=== PATIENT | female | born 1930 | race Caucasian/White ===

== ENCOUNTER 2016-10-10 22:01 | Inpatient (IN) | payer MEDICARE, OTHER ==
[~2016-10-10] VITALS: Ht 165.1 cm; Wt 74.1 kg
--- NOTE | ~2016-10-10 | CN ---
PATIENT NAME:EKATERINA TAVAREZ MEDICAL RECORD: [id number] : 32 LOCATION:KERI.2306 ADMIT DATE: 10/11/16 ACCOUNT: [id number] CONSULTING PHYSICIAN: VICTORIANO PEREZ MD REFERRING PHYSICIAN: RADU DONALDSON MD DATE OF CONSULTATION: 10/18/2016 Pulmonary Consultation REQUESTING PHYSICIAN: Dr. Anders Carlton. REASON FOR CONSULTATION: Acute mental status changes, acute hypoxic hypercapnic respiratory failure, respiratory acidosis, hyperammonemia. HISTORY OF PRESENT ILLNESS: Ms. Tavarez is an 86-year-old female. Initially, she was brought in with acute mental status changes, acute renal failure and UTI. The patient was on dialysis. Since yesterday, the patient is more weak and lethargic. ABG showed a pH of 7.24, pCO2 of 53 and ammonia level was 45. The patient was transferred to the ICU and start on lactulose and the patient was stable overnight on BiPAP. Now, she is a little bit responsive, but she still not awake and alert. She is very weak and lethargic. She also is dyspneic. There are no fever or chills. No night sweats. REVIEW OF SYSTEMS: The detail is not obtainable. PAST MEDICAL HISTORY: 1. Hypertension. 2. History of syncope. PAST SURGICAL HISTORY: Nonsignificant. ALLERGIES: SHE IS ALLERGIC TO SULFA. PRESENT MEDICATIONS: She is on Rocephin IV. Her other medication is reviewed. PERSONAL AND SOCIAL HISTORY: The patient never smoked. She is a nondrinker. FAMILY HISTORY: Noncontributory. PHYSICAL EXAMINATION: GENERAL: Now, the patient is on BiPAP. She is sleepy and lethargic. VITAL SIGNS: The blood pressure is 162/69, pulse is 56, respirations 14, temperature is 98.4, and SpO2 is 98% on 40% BiPAP. HEENT: Conjunctivae are pink. Sclerae are nonicteric. Pupils are equal, round, reactive to light. NECK: Supple, no JVD. CHEST: The chest excursion is minimal at the bases. There are crackles bilaterally. HEART: Rate and rhythm are regular. There is a grade II/ systolic murmur. ABDOMEN: Soft, bowel sounds present. No hepatosplenomegaly. RECTAL: Deferred. EXTREMITIES: No cyanosis, no clubbing. There is 1+ pedal edema. SKIN: Warm, normal turgor. CENTRAL NERVOUS: The patient is minimally responsive to verbal and painful stimuli. The pupils are equal, sluggish, reactive to light. CONSULT REPORT [id number] EKATERINA TAVAREZ CHEST RADIOGRAPH: There are bilateral pleural effusions. An NG tube is in place. There is pulmonary edema. CT scan of the head, there was nothing acute. LABORATORY DATA: ABG: The pH initially yesterday is 7.24, pCO2 of 53.4, the pO2 was 111, bicarbonate of 23. The repeat ABG: The pH is 7.28, pCO2 of 46.6, the pO2 is 105, bicarbonate 22.4. CBC: The WBC is 11.2, hemoglobin 12.2, hematocrit 37.1 and the platelet count 235. Chemistry: Sodium 140, potassium 3.2, BUN is 35, creatinine is 5, glucose 128. IMPRESSION: 1. Acute hypoxic hypercapnic respiratory failure, which is multifactorial. 2. Respiratory acidosis, secondary to #1. 3. Bilateral pleural effusion and pulmonary edema, most likely secondary to fluid overload secondary to renal failure secondary to valvular heart disease and congestive heart failure. 4. Acute mental status changes, possible metabolic encephalopathy, possible hyperammonemia. 5. Acute renal failure, possible acute kidney injury. 6. Hypertension. 7. Urinary tract infection. RECOMMENDATION: 1. Continue Rocephin. 2. Consult Dr. Sahu. Repeat the CT scan of the head tomorrow. Continue the BiPAP. Hemodialysis per Dr. Hawley. Cardiology is already on the case. Follow up labs and chest radiograph in the morning. Discussed in length with the family, they decided to make the patient DNR. Dr. Anders Carlton, once again, thank you for involving me in the care of Ms. Tavarez. TRANSINT:[id number] Voice Confirmation ID: [id number] DOCUMENT ID: [id number] VICTORIANO PEREZ MD CC: ANDERS CARLTON MD [id number] DICTATION DATE: 10/18/16 1311 PIECE MEAT TRIMMER: 10/18/16 1550 ADM IN [facility] [address] [id number]
--- NOTE | ~2016-10-10 | OP ---
PATIENT NAME: EKATERINA TERRAZAS MEDICAL RECORD: [id number] :32 LOCATION:D.M2 D.2105 ADMISSION DATE:10/11/16 SURGEON: DIANA TAN MD DATE OF OPERATION: 10/15/2016 PREOPERATIVE DIAGNOSES: 1. Acute kidney injury. 2. Hypertension. 3. Urinary tract infection. 4. Bradycardia. POSTOPERATIVE DIAGNOSES: 1. Acute kidney injury. 2. Hypertension. 3. Urinary tract infection. 4. Bradycardia. PROCEDURE: Right IJ 15 cm Trialysis placement. SURGEON: Diana Tan MD REPORT OF PROCEDURE: The patient's right neck was prepped and draped in sterile fashion. Using ultrasound guidance, the right internal jugular was found, 5 cc of 1% lidocaine were infused into the surrounding tissues. A needle was then used to cannulate the right internal jugular vein. The guidewire was advanced with ease. Over this wire, a dilator was placed followed by the Trialysis catheter. This catheter aspirated nonpulsatile dark blood and flushed easily with normal saline. This was sutured into place with 4-0 nylons and dressed appropriately. COMPLICATIONS: None. CONDITION: Stable. ANESTHESIA: Local. BLOOD LOSS: Minimal. Procedure done at the bedside. TRANSINT:[id number] Voice Confirmation ID: [id number] DOCUMENT ID: [id number] DIANA TAN MD CC: [id number] DICTATION DATE: 10/15/16 1026 CLOCKMAKER APPRENTICE: 10/15/16 190 ADM IN [facility] [address] [place] [address]
[2016-10-10 23:19] LABS: APPEARANCE CLEAR (CLEAR); BILIRUBIN NEGATIVE (NEGATIVE); COLOR YELLOW (YELLOW); GLUCOSE NEGATIVE (NEGATIVE); KETONE NEGATIVE (NEGATIVE); LEUKOCYTE ESTERASE NEGATIVE (NEGATIVE); NITRITE NEGATIVE (NEGATIVE); PROTEIN NEGATIVE (NEGATIVE); SPECIFIC GRAVITY 1.015 (1.005-1.020); UROBILINOGEN NORMAL (NORMAL)
[2016-10-10 23:23] LABS: BASOPHILS 0.3 % (0-2); EOSINOPHILS 5.2 % (0-7); HEMATOCRIT 36.1 % (36.0-48.0); HEMOGLOBIN 12.6 g/dL (12-16); IMMATURE GRANULOCYTES 0.6 % (0-5); LYMPHOCYTES 22.3 % (15-50); MCH 31.2 pg (26.0-34.0); MCHC 34.9 g/dL (31.0-37.0); MCV 89.4 fL (80.0-100.0); MEAN PLATELET VOLUME 9.2 fL (7.4-10.4); MONOCYTES 11.1 % (2-11); NEUTROPHILS 60.5 % (40-80); PLATELET COUNT 264 10x3/uL (130-400); RBC 4.04 10x6/uL (4.00-5.40); RDW 13.6 % (11.5-14.5); WBC 6.6 10x3/uL (4.8-10.8)
[2016-10-10 23:44] LABS: ALBUMIN 3.5 g/dL (3.4-5.0); ANION GAP 17.5 mmol/L (8-16); BILIRUBIN - TOTAL 0.32 mg/dL (0.2-1.3); CALCIUM 7.9 mg/dL (8.5-10.1); CARBON DIOXIDE 25.7 mmol/L (21.0-32.0); CREATININE - SERUM 9.7 mg/dL (0.6-1.3); POTASSIUM - SERUM 4.2 mmol/L (3.5-5.1); PROTEIN - SERUM 7.5 g/dL (6.4-8.2)
[2016-10-11 04:00] VITALS: BP 152/64
[2016-10-11 08:15] VITALS: BP 154/66
[2016-10-11 12:08] VITALS: BP 156/76; BP 172/72
[2016-10-11] MEDS ORDERED: ZOCOR40 MG PO (12:16)
[2016-10-11] MEDS ORDERED: METOPROLOL TAR100 M1 PO (12:16)
[2016-10-11] MEDS ORDERED: VALIUM5 MG PO (12:17)
[2016-10-11] MEDS ORDERED: ULTRAM50 MG PO (12:18)
[2016-10-11] MEDS ORDERED: LISINOPRIL-HCTZ1 T13 PO (12:19)
[2016-10-11] MEDS ORDERED: NORVASC5 MG PO (12:19)
[2016-10-11] MEDS ORDERED: LEVOTHYROXINE100 MCG PO (12:19)
[2016-10-11 12:49] LABS: BASOPHILS 0.2 % (0-2); EOSINOPHILS 4.2 % (0-7); HEMATOCRIT 35.2 % (36.0-48.0); HEMOGLOBIN 12.3 g/dL (12-16); IMMATURE GRANULOCYTES 0.4 % (0-5); LYMPHOCYTES 22.7 % (15-50); MCH 31.4 pg (26.0-34.0); MCHC 34.9 g/dL (31.0-37.0); MCV 89.8 fL (80.0-100.0); MEAN PLATELET VOLUME 8.9 fL (7.4-10.4); MONOCYTES 6.6 % (2-11); NEUTROPHILS 65.9 % (40-80); RBC 3.92 10x6/uL (4.00-5.40); RDW 13.6 % (11.5-14.5)
[2016-10-11 12:58] LABS: ANION GAP 16.9 mmol/L (8-16); CALCIUM 7.4 mg/dL (8.5-10.1); CARBON DIOXIDE 23.1 mmol/L (21.0-32.0); CREATININE - SERUM 9.4 mg/dL (0.6-1.3)
[2016-10-11 12:59] LABS: PLATELET COUNT 208 10x3/uL (130-400)
[2016-10-11 13:49] LABS: CKMB 1.4 U/L (0.0-3.6); CREATINE KINASE 43 UL (21-215); TROPONIN-I < 0.017 ng/mL (0.000-0.060)
[2016-10-11 15:07] LABS: CREATININE - URINE 81.7 mg/dL (30-125); POTASSIUM - URINE 29.2 MMOL/L (12.0-62.0); PROTEIN - URINE 35.1 mg/dL (0.0-11.9)
[2016-10-11 15:49] VITALS: BP 167/62
[2016-10-11 19:37] LABS: CKMB 1.9 U/L (0.0-3.6); CREATINE KINASE 58 UL (21-215)
[2016-10-11 19:43] LABS: TROPONIN-I < 0.017 ng/mL (0.000-0.060)
[2016-10-11 20:00] VITALS: BP 183/78
[2016-10-12] VITALS: BP 191/74
[2016-10-12 01:31] LABS: CKMB 1.3 U/L (0.0-3.6); CREATINE KINASE 34 UL (21-215)
[2016-10-12 01:32] LABS: TROPONIN-I < 0.017 ng/mL (0.000-0.060)
[2016-10-12 04:00] VITALS: BP 144/55
[2016-10-12 05:32] LABS: BASOPHILS 0.3 % (0-2); EOSINOPHILS 2.2 % (0-7); HEMATOCRIT 33.9 % (36.0-48.0); HEMOGLOBIN 11.9 g/dL (12-16); IMMATURE GRANULOCYTES 0.8 % (0-5); LYMPHOCYTES 10.9 % (15-50); MCH 31.2 pg (26.0-34.0); MCHC 35.1 g/dL (31.0-37.0); MCV 88.7 fL (80.0-100.0); MEAN PLATELET VOLUME 9.5 fL (7.4-10.4); MONOCYTES 5.5 % (2-11); NEUTROPHILS 80.3 % (40-80); PLATELET COUNT 236 10x3/uL (130-400); RBC 3.82 10x6/uL (4.00-5.40); RDW 13.9 % (11.5-14.5); WBC 7.4 10x3/uL (4.8-10.8)
[2016-10-12 05:49] LABS: ANION GAP 19.9 mmol/L (8-16); CALCIUM 7.4 mg/dL (8.5-10.1); CREATININE - SERUM 9.5 mg/dL (0.6-1.3); POTASSIUM - SERUM 3.9 mmol/L (3.5-5.1)
[2016-10-12 07:55] VITALS: BP 178/80
[2016-10-12 12:00] VITALS: BP 152/75
[2016-10-12 12:07] VITALS: BMI 27.3
[2016-10-12 16:00] VITALS: BP 146/62
[2016-10-12 19:00] VITALS: BP 168/84
[2016-10-13] VITALS: BP 130/60
[2016-10-13 01:59] VITALS: BP 130/60; Ht 165.1 cm; Wt 74.1 kg
[2016-10-13 05:35] LABS: BASOPHILS 0.2 % (0-2); EOSINOPHILS 1.6 % (0-7); HEMATOCRIT 34.7 % (36.0-48.0); IMMATURE GRANULOCYTES 1.1 % (0-5); MCH 31.1 pg (26.0-34.0); MCHC 34.6 g/dL (31.0-37.0); MCV 89.9 fL (80.0-100.0); MEAN PLATELET VOLUME 9.4 fL (7.4-10.4); MONOCYTES 6.1 % (2-11); PLATELET COUNT 241 10x3/uL (130-400); RBC 3.86 10x6/uL (4.00-5.40); RDW 14.2 % (11.5-14.5); WBC 6.4 10x3/uL (4.8-10.8)
[2016-10-13 05:38] VITALS: BP 164/77
[2016-10-13 06:31] LABS: ANION GAP 19.4 mmol/L (8-16); CALCIUM 7.5 mg/dL (8.5-10.1); CARBON DIOXIDE 19.1 mmol/L (21.0-32.0); CREATININE - SERUM 9.4 mg/dL (0.6-1.3); POTASSIUM - SERUM 4.5 mmol/L (3.5-5.1)
[2016-10-13 12:00] VITALS: BP 154/68
[2016-10-13 16:28] VITALS: BP 146/68
[2016-10-13 20:00] VITALS: BP 155/71
[2016-10-14] VITALS: BP 124/62
[2016-10-14 04:00] VITALS: BP 135/55
[2016-10-14 05:51] LABS: BASOPHILS 0.2 % (0-2); EOSINOPHILS 0.7 % (0-7); HEMATOCRIT 35.7 % (36.0-48.0); IMMATURE GRANULOCYTES 1.9 % (0-5); LYMPHOCYTES 11.6 % (15-50); MCH 30.8 pg (26.0-34.0); MCHC 33.6 g/dL (31.0-37.0); MCV 91.8 fL (80.0-100.0); MEAN PLATELET VOLUME 9.5 fL (7.4-10.4); MONOCYTES 6.7 % (2-11); NEUTROPHILS 78.9 % (40-80); PLATELET COUNT 232 10x3/uL (130-400); RBC 3.89 10x6/uL (4.00-5.40); RDW 14.9 % (11.5-14.5); WBC 5.9 10x3/uL (4.8-10.8)
[2016-10-14 06:06] LABS: ANION GAP 21.6 mmol/L (8-16); CALCIUM 7.6 mg/dL (8.5-10.1); CARBON DIOXIDE 17.2 mmol/L (21.0-32.0); CREATININE - SERUM 9.2 mg/dL (0.6-1.3); POTASSIUM - SERUM 4.8 mmol/L (3.5-5.1)
[2016-10-14 06:26] LABS: INR 1.11 (0.85-1.17); PROTIME 14.2 SECONDS (11.6-15.0)
[2016-10-14 07:25] LABS: ERYTHROCYTE SEDIMENTATION RATE 24 mm/hr (0-42)
[2016-10-14 08:10] VITALS: BP 111/49
[2016-10-14 12:17] VITALS: BP 135/59
[2016-10-14 16:30] VITALS: BP 136/52
[2016-10-14 20:00] VITALS: BP 124/56
[2016-10-15] VITALS: BP 146/86
[2016-10-15 04:00] VITALS: BP 122/58
[2016-10-15 05:09] LABS: BASOPHILS 0.1 % (0-2); EOSINOPHILS 0.1 % (0-7); HEMATOCRIT 33.5 % (36.0-48.0); HEMOGLOBIN 11.1 g/dL (12-16); IMMATURE GRANULOCYTES 2.1 % (0-5); LYMPHOCYTES 9.6 % (15-50); MCH 30.7 pg (26.0-34.0); MCHC 33.1 g/dL (31.0-37.0); MCV 92.8 fL (80.0-100.0); MEAN PLATELET VOLUME 9.4 fL (7.4-10.4); MONOCYTES 5.3 % (2-11); NEUTROPHILS 82.8 % (40-80); PLATELET COUNT 218 10x3/uL (130-400); RBC 3.61 10x6/uL (4.00-5.40); WBC 7.2 10x3/uL (4.8-10.8)
[2016-10-15 05:36] LABS: ANION GAP 19.8 mmol/L (8-16); CALCIUM 7.3 mg/dL (8.5-10.1); CARBON DIOXIDE 17.3 mmol/L (21.0-32.0); CREATININE - SERUM 9.1 mg/dL (0.6-1.3); POTASSIUM - SERUM 5.1 mmol/L (3.5-5.1)
[2016-10-15 08:00] VITALS: BP 106/48
[2016-10-15 12:00] VITALS: BP 108/62
[2016-10-15 16:00] VITALS: BP 151/69
[2016-10-15 20:00] VITALS: BP 135/57
[2016-10-16] VITALS: BP 137/83
[2016-10-16 04:00] VITALS: BP 131/64
[2016-10-16 05:50] LABS: BASOPHILS 0.2 % (0-2); EOSINOPHILS 0.2 % (0-7); HEMATOCRIT 35.7 % (36.0-48.0); HEMOGLOBIN 11.9 g/dL (12-16); IMMATURE GRANULOCYTES 0.8 % (0-5); LYMPHOCYTES 7.3 % (15-50); MCH 30.7 pg (26.0-34.0); MCHC 33.3 g/dL (31.0-37.0); MCV 92.2 fL (80.0-100.0); MEAN PLATELET VOLUME 9.6 fL (7.4-10.4); MONOCYTES 5.1 % (2-11); NEUTROPHILS 86.4 % (40-80); PLATELET COUNT 227 10x3/uL (130-400); RBC 3.87 10x6/uL (4.00-5.40); RDW 15.5 % (11.5-14.5)
[2016-10-16 05:51] LABS: WBC 11.2 10x3/uL (4.8-10.8)
[2016-10-16 05:57] LABS: CALCIUM 7.7 mg/dL (8.5-10.1)
[2016-10-16 06:02] LABS: ANION GAP 17.8 mmol/L (8-16); CARBON DIOXIDE 22.1 mmol/L (21.0-32.0); CREATININE - SERUM 5.9 mg/dL (0.6-1.3); POTASSIUM - SERUM 3.9 mmol/L (3.5-5.1)
[2016-10-16 08:07] VITALS: BP 113/47
--- NOTE | 2016-10-16 08:26 | EC ---
PATIENT:EKATERINA TERRAZAS DATE OF SERVICE: 10/11/16 SEX: F MEDICAL RECORD: [id number] DATE OF : 32 LOCATION:D.M2 D.210 AGE OF PATIENT: 86 ADMISSION DATE: 10/11/16 REFERRING PHYSICIAN: INTERPRETING PHYSICIAN: BUTCH BRENNER MD ECHOCARDIOGRAM REPORT ECHO CHARGES 4 ECHO COMPLETE CLINICAL DIAGNOSIS: DYSPNEA/ELEVATED BNP ECHOCARDIOGRAPHIC MEASUREMENTS (adult normal given) AC root (d.<3.7cm) 3.3 LV Septum d (<1.2 cm> 1.7 Valve Excursion 1.2 LV Septum (systole) 2.4 Left Atria (s.<4.0cm> 4.8 LVPW d(<1.2cm) 1.3 RV (d.<2.3cm) 2.4 LVPW (sytole) 1.9 LV diastole(<5.6CM) 4.5 MV E-F(>70mm/sec) LV systole 2.6 LVOT Diameter 1.7 MV exc.(>10mm) Est.ejection fraction (50-75%) Pericardial Effusion N DOPPLER: LVIT A 93.0 E 139 LA RVSP 90.2 LVOT 89.0 AOP1/2T Asc. Ao 301 RVOT 76.0 RA PA 69.0 AV Gradient Peak 36.2 AV Mean 19.0 AV Area 0.7 MV Gradient Peak 8.6 MV Mean 2.5 MV Area COMMENTS: Water Quality Control Engineer: Mick GARCIA ROBERTS Chipper Feeder:Ashley Membreno TAPE# PACS DATE OF SERVICE: 10/12/2016 Adequate 2D echo, color flow and spectral Doppler, and M-mode. LVH is present. LV internal dimension is normal. Wall motion is normal. EF is greater than or equal to 55%. Aortic valve is calcified with restriction of leaflet motion. Peak gradient of 36 mmHg, putting this in the mild to moderate range. Left atrium is dilated at 4.8 cm. Mitral valve is thickened. Moderate MR. Right-sided chamber is grossly normal. Moderate TR. RV systolic pressure is estimated greater than or equal to 59 mmHg. ECHOCARDIOGRAM REPORT [id number] EKATERINA TERRAZAS TRANSINT:[id number] Voice Confirmation ID: [id number] DOCUMENT ID: [id number] BUTCH BRENNER MD at 0826 CC: [id number] DICTATION DATE: 10/12/16 1221 ASSOCIATE PROFESSOR OF ART: 10/12/16 1331 ADM IN [facility] [address] [id number]
[2016-10-16 09:18] LABS: HEPATITIS C ANTIBODY <0.1 (0.0-0.9)
[2016-10-16 16:00] VITALS: BP 117/53
[2016-10-16 16:14] LABS: SPE - A/G RATIO 1.2 (0.7-1.7); SPE - ALBUMIN 3.2 g/dL (2.9-4.4); SPE - ALPHA-1 GLOBULIN 0.3 g/dL (0.0-0.4); SPE - ALPHA-2 GLOBULIN 0.8 g/dL (0.4-1.0); SPE - BETA GLOBULIN 0.8 g/dL (0.7-1.3); SPE - GAMMA GLOBULIN 0.8 g/dL (0.4-1.8); SPE - M-SPIKE Not Observed g/dL (Not Observed); SPE - TOTAL PROTEIN 5.9 g/dL (6.0-8.5)
[2016-10-17] VITALS (9 sets, daily range): BP systolic 118–200; BP diastolic 60–89
[2016-10-17 06:49] LABS: BASOPHILS 0.1 % (0-2); EOSINOPHILS 0.4 % (0-7); HEMATOCRIT 35.1 % (36.0-48.0); HEMOGLOBIN 11.6 g/dL (12-16); IMMATURE GRANULOCYTES 0.5 % (0-5); LYMPHOCYTES 11.3 % (15-50); MCH 30.9 pg (26.0-34.0); MCV 93.4 fL (80.0-100.0); NEUTROPHILS 79.7 % (40-80); PLATELET COUNT 199 10x3/uL (130-400); RBC 3.76 10x6/uL (4.00-5.40); RDW 15.7 % (11.5-14.5); WBC 10.2 10x3/uL (4.8-10.8)
[2016-10-17 06:57] LABS: ANION GAP 12.2 mmol/L (8-16); CALCIUM 7.6 mg/dL (8.5-10.1); CARBON DIOXIDE 25.9 mmol/L (21.0-32.0); CREATININE - SERUM 3.9 mg/dL (0.6-1.3); POTASSIUM - SERUM 3.1 mmol/L (3.5-5.1)
[2016-10-18] VITALS (24 sets, daily range): BP systolic 148–209; BP diastolic 57–90
[2016-10-18 05:09] LABS: BASOPHILS 0.1 % (0-2); EOSINOPHILS 0.3 % (0-7); HEMATOCRIT 37.1 % (36.0-48.0); HEMOGLOBIN 12.2 g/dL (12-16); IMMATURE GRANULOCYTES 0.4 % (0-5); LYMPHOCYTES 6.9 % (15-50); MCH 30.6 pg (26.0-34.0); MCHC 32.9 g/dL (31.0-37.0); MEAN PLATELET VOLUME 9.4 fL (7.4-10.4); MONOCYTES 7.7 % (2-11); NEUTROPHILS 84.6 % (40-80); PLATELET COUNT 235 10x3/uL (130-400); RBC 3.99 10x6/uL (4.00-5.40); RDW 15.7 % (11.5-14.5); WBC 11.2 10x3/uL (4.8-10.8)
[2016-10-18 05:21] LABS: ANION GAP 15.5 mmol/L (8-16); CALCIUM 7.9 mg/dL (8.5-10.1); CARBON DIOXIDE 24.7 mmol/L (21.0-32.0); POTASSIUM - SERUM 3.2 mmol/L (3.5-5.1)
[2016-10-19] VITALS (24 sets, daily range): BP systolic 108–209; BP diastolic 59–103
[2016-10-19 04:48] LABS: BASOPHILS 0.2 % (0-2); EOSINOPHILS 1.3 % (0-7); HEMATOCRIT 37.2 % (36.0-48.0); HEMOGLOBIN 12.4 g/dL (12-16); IMMATURE GRANULOCYTES 0.5 % (0-5); MCH 30.7 pg (26.0-34.0); MCHC 33.3 g/dL (31.0-37.0); MCV 92.1 fL (80.0-100.0); MEAN PLATELET VOLUME 9.2 fL (7.4-10.4); MONOCYTES 8.3 % (2-11); NEUTROPHILS 84.7 % (40-80); PLATELET COUNT 226 10x3/uL (130-400); RBC 4.04 10x6/uL (4.00-5.40); RDW 15.6 % (11.5-14.5); WBC 11.4 10x3/uL (4.8-10.8)
[2016-10-19 05:08] LABS: ANION GAP 11.8 mmol/L (8-16); CALCIUM 8.5 mg/dL (8.5-10.1); CARBON DIOXIDE 26.2 mmol/L (21.0-32.0); CREATININE - SERUM 5.5 mg/dL (0.6-1.3)
[2016-10-20] VITALS (12 sets, daily range): BP systolic 119–165; BP diastolic 61–97
[2016-10-20 03:57] LABS: BASOPHILS 0.1 % (0-2); EOSINOPHILS 2.3 % (0-7); HEMATOCRIT 35.6 % (36.0-48.0); HEMOGLOBIN 11.7 g/dL (12-16); IMMATURE GRANULOCYTES 0.5 % (0-5); LYMPHOCYTES 6.6 % (15-50); MCH 30.3 pg (26.0-34.0); MCHC 32.9 g/dL (31.0-37.0); MCV 92.2 fL (80.0-100.0); MEAN PLATELET VOLUME 9.8 fL (7.4-10.4); MONOCYTES 4.8 % (2-11); NEUTROPHILS 85.7 % (40-80); PLATELET COUNT 182 10x3/uL (130-400); RBC 3.86 10x6/uL (4.00-5.40); RDW 15.5 % (11.5-14.5); WBC 9.7 10x3/uL (4.8-10.8)
[2016-10-20 04:10] LABS: ANION GAP 8.4 mmol/L (8-16); CALCIUM 8.4 mg/dL (8.5-10.1); CARBON DIOXIDE 29.2 mmol/L (21.0-32.0); CREATININE - SERUM 4.5 mg/dL (0.6-1.3)
[2016-10-20 04:14] LABS: POTASSIUM - SERUM 2.6 mmol/L (3.5-5.1)
== END 2016-10-20 17:25 | disposition hospice, inpatient (51) | DRG 682 ==
LOC: D.ER 22:01 → D.ICU 10-11 00:31 → D.M2 10-11 00:31 → D.ICU 10-17 18:38
PROVIDERS: Emergency Medicine; Internal Medicine; Internal Medicine Nephrology; ADMIT Family Medicine Adult Medicine
PROC: 0T9B70Z Drainage of Bladder with Drainage Device, Via Natural or Artificial Opening (ICD-10-PCS; 2016-10-14)
PROC: 5A1D60Z (ICD-10-PCS; 2016-10-15)
PROC: 05HM33Z Insertion of Infusion Device into Right Internal Jugular Vein, Percutaneous Approach (ICD-10-PCS; 2016-10-15)
PROC: 0D9670Z Drainage of Stomach with Drainage Device, Via Natural or Artificial Opening (ICD-10-PCS; principal; 2016-10-17)
PROC: 5A09457 Assistance with Respiratory Ventilation, 24-96 Consecutive Hours, Continuous Positive Airway Pressure (ICD-10-PCS; 2016-10-17)
DX: N17.0 Acute kidney failure with tubular necrosis (principal); J96.02 Acute respiratory failure with hypercapnia; J96.01 Acute respiratory failure with hypoxia; I63.511 Cerebral infarction due to unspecified occlusion or stenosis of right middle cerebral artery; G93.41 Metabolic encephalopathy; E87.1 Hypo-osmolality and hyponatremia; N39.0 Urinary tract infection, site not specified; E87.2 Acidosis; I16.0 Hypertensive urgency; R51 Headache; I08.3 Combined rheumatic disorders of mitral, aortic and tricuspid valves; R00.1 Bradycardia, unspecified; R41.0 Disorientation, unspecified; R20.3 Hyperesthesia; I11.0 Hypertensive heart disease with heart failure; I50.9 Heart failure, unspecified; Z66 Do not resuscitate

== ENCOUNTER 2016-10-20 16:15 | Inpatient (IN) | payer OTHER ==
[~2016-10-20] VITALS: Ht 165.1 cm; Wt 76.4 kg
[~2016-10-20 16:15] MED LIST: LEVOTHYROXINE100 MCG PO; LISINOPRIL-HCTZ1 T13 PO; METOPROLOL TAR100 M1 PO; NORVASC5 MG PO; ULTRAM50 MG PO; VALIUM5 MG PO; ZOCOR40 MG PO
[2016-10-20 18:27] VITALS: BP 134/68; Ht 165.1 cm; Wt 76.4 kg
--- NOTE | 2016-10-20 18:52 | NUR ---
REPORT CALLED TO TATO LOPEZ ON MED 2. WILL TRANSFER VIA BED.
--- NOTE | 2016-10-20 19:11 | NUR ---
RECEIVED REPORT FROM MARLON GODWIN FROM ICU.
--- NOTE | 2016-10-20 19:30 | NUR ---
PT RECEIVED VIA HOSPITAL BED, UNRESPONSIVE, TACHYPNEIC, WITH MORPHINE BUSINESS RECORDS MANAGER INFUSING. CONTINUE TO MONITOR CLOSELY.
[2016-10-20 20:29] VITALS: BP 108/66; BP 116/61
--- NOTE | 2016-10-21 04:24 | NUR ---
PT REMAINS UNRESPONSIVE, RESPIRATIONS NOT LABORED, STILL KUSSMAUL RESP, AND TACHYPNEIC. CONTINUE TO MONITOR AND PROVIDE COMFORT CARE.
--- NOTE | 2016-10-21 07:46 | NUR ---
AM ROUNDING- RECEIVED REPORT FROM SEAT SCOOPER MACHINE NURSE JOHN, TATO. PT IS CURRENTLY LAYING IN BED ON BACK WITH EYES CLOSED RESTING. DNR. ON HOSPICE PER ORDER. IV SEEN TO RIGHT IJ WITH NS RUNNING AT 30CC. ASH WORKER PUMP WITH MORPHINE GOING AT 0.5MG CONTINUOUS ORDERED. 19.4ML REMAINING IN SYRINGE (ASH WORKER MORPHINE) THIS AM WHEN CLEARED WITH SEAT SCOOPER MACHINE NURSE JOHN, TATO. ON 02 AT 2L VIA NC. SOLIS CATHETER SEEN WITH SCANT URINE. WEEPING EDEMA SEEN TO LEFT ARM, PAD UNDER ARM. NO NEED AT CURRENT TIME. WILL CONTINUE TO MONITOR AND CONTINUE WITH PLAN OF CARE.
[2016-10-21 08:20] VITALS: BP 190/64
--- NOTE | 2016-10-21 13:22 | NUR ---
TATO GOMEZ AND I TURNED PT ON SIDE TO CHECK FOR BM. NO BM SEEN. BRUISING SEEN TO LEFT SIDE OF PTS BODY. LEFT ARM HAS WEEPING EDEMA SEEN. LEFT ARM IS COOL TO TOUCH, ELEVATED ARM ON PILLOW WITH PAD UNDERNEATH. SOLIS CARE DONE. WILL CONTINUE TO MONITOR.
--- NOTE | 2016-10-21 14:48 | NUR ---
PT IS RESTING WITH EYES CLOSED. WHEN I STATED PTS NAME PT DID OPEN HER EYES SLIGHTLY. DAUGTER AND GUEST ARE AT BEDSIDE. EQUAL CHEST RISE AND FALL SEEN WITH RESP AT 16BPM. NO NEED AT CURRENT TIME. WILL CONTINUE TO MONITOR.
--- NOTE | 2016-10-21 17:11 | NUR ---
PT RESTING WITH EYES CLOSED. GRANDSON AT BEDSIDE. CHANGED PTS DRESSING TO RIGHT IJ. WILL CONTINUE TO MONITOR.
--- NOTE | 2016-10-21 17:31 | NUR ---
PT IS LAYING IN BED WITH EYES CLOSED RESTING. SON AT BEDSIDE. PT IS NOT RESPONDING TO VERBAL COMMAND. CRUTCHER HELPER PUMP WITH MORPHINE RUNNING AT 0.5MG CONTINUOUS ORDERED. WILL CONTINUE TO MONITOR.
[2016-10-21 19:00] VITALS: BP 114/65
--- NOTE | 2016-10-21 19:20 | NUR ---
RECEIVED REPORT, PT IS HOSPICE, BED IS LOW, SRX3, WILL CONTINUE COMFORT CARE
[2016-10-21 20:00] VITALS: BP 183/89
--- NOTE | 2016-10-21 20:15 | NUR ---
FISHER TROT LINE AT BEDSIDE TO OBTAIN VITALS, CALL LIGHT IN REACH. WILL CONTINUE WITH PLAN OF CARE.
--- NOTE | 2016-10-22 04:20 | NUR ---
ASSESSMENT COMPLETE, SEE FLOW SHEET, BED IS LOW, SRX2, WILL CONTINUE COMFORT CARE
--- NOTE | 2016-10-22 07:20 | NUR ---
AM ROUNDS DONE AT THIS TIME. PT'S BREATHING IS SHALLOW, NO FAMILY PRESENT AT THIS TIME. CALL LIGHT IN REACH, NAD NOTED, WILL CONTINUE TO MONITOR.
[2016-10-22 08:26] VITALS: BP 143/58
--- NOTE | 2016-10-22 15:35 | NUR ---
[facility] NURSE AT BEDSIDE TALKING TO FAMILY. PT IN BED, NAD NOTED, WILL CONTINUE TO MONITOR.
--- NOTE | 2016-10-22 19:20 | NUR ---
RECEIVED REPORT, PT IS HOSPICE, BED IS LOW, SRX2, ALARM IS ON, CALL LIGHT IN REACH, WILL CONTINUE COMFORT CARE
[2016-10-22 20:00] VITALS: BP 112/52
--- NOTE | 2016-10-22 22:46 | NUR ---
CALL LIGHT IN REACH, WILL CONTINUE WITH PLAN OF CARE.
[2016-10-23] MEDS ORDERED: CHRONULAC30 ML PO (03:04)
--- NOTE | 2016-10-23 03:15 | NUR ---
ASSESSMENT COMPLETE, SEE FLOWSHEET, PT IS HOSPICE, BED IS LOW, SRX3, CALL LIGHT IN REACH, WILL CONTINUE COMFORT CARE
--- NOTE | 2016-10-23 07:12 | NUR ---
AM ROUNDS, PT IN BED, BREATHING SHALOW, DID NOT OPEN EYES WHEN SPOKEN TO. NO FAMILY AT BEDSIDE, NAD NOTED, WILL CONTINUE TO MONITOR.
[2016-10-23 08:30] VITALS: BP 77/40
--- NOTE | 2016-10-23 12:51 | NUR ---
PT IN BED, SHALLOW BREATHING, RESP 18, MORPHINE PATIENT BILLER INFUSING 0.5MG CONT, NS AT 30CC/H, NO FAMILY AT BEDSIDE, NAD NOTED, WILL CONTINUE TO MONITOR.
--- NOTE | 2016-10-23 14:09 | NUR ---
AMINISTERED 2MG BOLUS PER HOSPICE NURSE JAZMINE. PT GRUNTING A LITTLE AND SHALLOW BREATHING. NAD NOTED, REPOSITIONED PT, WILL CONTINUE TO MONITOR.
--- NOTE | 2016-10-23 16:37 | NUR ---
PT MAKING SOME GRUTTING NOISES, GAVE 1MG OF ATIVAN TO HELP HER CALM DOWN. BREATHING STILL SHALLOW. NAD NOTED, WILL CONTINUE TO MONITOR.
--- NOTE | 2016-10-23 19:20 | NUR ---
RECEIVED REPORT, PT IS UNRESPONSIVE (HOSPICE), BED IS LOW, SRX3, BED ALARM IS ON, WILL CONTINUE COMFORT CARE
[2016-10-23 20:21] VITALS: BP 76/36
--- NOTE | 2016-10-23 23:15 | NUR ---
PT RESTING WELL WITHOUT C/O OR DISTRESS NOTED. CALL LIGHT WITHIN REACH. NO NEEDS VOICED. WILL CONT TO MONITOR.
--- NOTE | 2016-10-24 00:32 | NUR ---
PT JUST , PHONE [facility]
--- NOTE | 2016-10-24 00:40 | NUR ---
CALL DR. JANG OFFICE, TO BE PAGED BACK
--- NOTE | 2016-10-24 00:47 | NUR ---
SPOKE WITH CHRISTOPHER, TO NOTIFY OF
--- NOTE | 2016-10-24 00:50 | NUR ---
SPOKE WITH JAZMINE PARISH GUNLOCK, SAID WILL BE HERE IN 30 MIN
--- NOTE | 2016-10-24 01:07 | NUR ---
CALL DR. JANG OFFICE AGAIN
--- NOTE | 2016-10-24 01:24 | NUR ---
CALL BACK TRANSFER TO ER
== END 2016-10-24 01:30 | DRG 951 ==
LOC: D.M2 16:15
PROVIDERS: ADMIT Legal Medicine
DX: Z51.5 Encounter for palliative care (principal)